=== PATIENT | male | born 1995 | race Caucasian/White ===

== ENCOUNTER 2017-06-02 01:01 | Emergency (ER) | payer BC ==
--- NOTE | 2017-06-02 01:15 | EDM.PDOC ---
ED HPI GENERAL MEDICAL PROBLEM - General Chief Complaint: Lower Extremity Injury/Pain Stated Complaint: RIGHT FOOT PAIN Time Seen by Provider: 06/02/17 01:13 Source of Information: Reports: Patient - History of Present Illness INITIAL COMMENTS - FREE TEXT/NARRATIVE: HISTORY AND PHYSICAL: History of present illness: [] Review of shunt presents with right foot pain and open lesion on toes 3 and 4 just behind nailbed subcentimeter lacerations, patient states that a drill bit from an oil rig fell on his foot he was lifting the box with the bit and it fell through the bottom of the box unable to bear weight due to pain he rates 2 of 10 at rest 6 out of 10 with weightbearing Last tetanus shot 2 half years prior per patient No fever nausea vomiting chills sweats unaffected above the ankle no other injury per patient systems: As per history of present illness and below otherwise all systems reviewed and negative. Past medical history: As per history of present illness and as reviewed below otherwise noncontributory. Surgical history: As per history of present illness and as reviewed below otherwise noncontributory. Social history: No reported history of drug or alcohol abuse. Family history: As per history of present illness and as reviewed below otherwise noncontributory. Physical exam: HEENT: Atraumatic, normocephalic, pupils reactive, negative for conjunctival pallor or scleral icterus, mucous membranes moist, throat clear, neck supple, nontender, trachea midline. Lungs: Clear to auscultation, breath sounds equal bilaterally, chest nontender. Heart: S1S2, regular, negative for clicks, rubs, or JVD. Abdomen: Soft, nondistended, nontender. Negative for masses or hepatosplenomegaly. Negative for costovertebral tenderness. Pelvis: Stable nontender. Genitourinary: Deferred. Rectal: Deferred. Extremities: Atraumatic, negative for cords or calf pain. Neurovascular unremarkable. Right foot as per history of present illness Neuro: Awake, alert, oriented. Cranial nerves II through XII unremarkable. Cerebellum unremarkable. Motor and sensory unremarkable throughout. Exam nonfocal. Diagnostics: []Right foot 3 views Therapeutics: []Tetanus status previously up-to-date Rest ice ibuprofen Postop boot Keflex 500 by mouth twice a day #20 no refill Impression: []foot pain Subcentimeter lacerations toes 3 and 4-no suture Contusion Definitive disposition and diagnosis as appropriate pending reevaluation and review of above. Right Feet Pain Score (Numeric/FACES): 7 - Related Data Allergies Allergy/AdvReac Type Severity Reaction Status Date / Time No Known Allergies Allergy Verified 06/02/17 01:17 Home Meds: Home Meds . [No Known Home Meds] 06/02/17 [History] Review of Systems - Review of Systems Review Of Systems: ROS reveals no pertinent complaints other than HPI. ED EXAM, GENERAL - Physical Exam Exam: See Below Course - Vital Signs Last Recorded V/S: Last Vital Signs Temp 36.6 C 06/02/17 01:04 Pulse 87 06/02/17 01:04 Resp 18 06/02/17 01:04 BP 128/77 06/02/17 01:04 Pulse Ox 96 06/02/17 01:04 - Orders/Labs/Meds Orders: Active Orders 24 hr Category Date Time Status Foot Comp Min 3V Rt [CR] Stat Exams 06/02/17 01:12 Taken Meds: Medications Discontinued Medications Generic Name Dose Route Start Last Admin Trade Name Freq PRN Reason Stop Dose Admin Bacitracin 1 dose 06/02/17 02:23 Bacitracin Oint 1 Gm TOP 06/02/17 02:24 ONETIME ONE Departure - Departure Time of Disposition: 02:35 Disposition: Home, Self-Care 01 Condition: Good Clinical Impression: Contusion - Discharge Information Referrals: PCP,None [Primary Care Provider] - Forms: ED Department Discharge Additional Instructions: Bacitracin Telfa dressing Postop boot for comfort and to assist in healing small laceration/abrasion Return if symptoms persist or worsen Antibiotic prophylaxis Keflex prescription provided use as directed Return if fever nausea vomiting chills sweats redness warmth or pus drainage should this develop Follow-up with primary care occupational health in 2 weeks sooner as needed The following information is given to patients seen in the emergency department who are being discharged to home. This information is to outline your options for follow-up care. We provide all patients seen in our emergency department with a follow-up referral. The need for follow-up, as well as the timing and circumstances, are variable depending upon the specifics of your emergency department visit. If you don't have a primary care physician on staff, we will provide you with a referral. We always advise you to contact your personal physician following an emergency department visit to inform them of the circumstance of the visit and for follow-up with them and/or the need for any referrals to a consulting specialist. The emergency department will also refer you to a specialist when appropriate. This referral assures that you have the opportunity for follow-up care with a specialist. All of these measure are taken in an effort to provide you with optimal care, which includes your follow-up. Under all circumstances we always encourage you to contact your private physician who remains a resource for coordinating your care. When calling for follow-up care, please make the office aware that this follow-up is from your recent emergency room visit. If for any reason you are refused follow-up, please contact the [facility] emergency department at and asked to speak to the emergency department charge nurse. - My Orders Last 24 Hours: My Active Orders 06/02/17 01:12 Foot Comp Min 3V Rt [CR] Stat - Assessment/Plan Last 24 Hours: My Active Orders 06/02/17 01:12 Foot Comp Min 3V Rt [CR] Stat
[2017-06-02] MEDS ORDERED: Bacitracin Oint 1 GM U/D Packet TOP ONE (02:23)
[2017-06-02 02:47] VITALS: BP 125/56
--- NOTE | 2017-06-03 11:17 | CR ---
EXAM DATE: 06/02/17 PATIENT'S AGE: 22 Patient: POLLO SHARP Facility: [place], [place] Site . Site : 1995 Study: XRay Extremity Right FOOT-06/02/2017 2:09:01 AM Ordering Physician: Doctor Barker Final Report: INDICATION: Pain. Oil rig drill fell on foot. Laceration to ring toe. TECHNIQUE: Foot radiograph 3 views COMPARISON: None FINDINGS: Bones: Alignment is normal. No definite fracture to the 3rd or 4th terminal maximo. Joint spaces: The visualized hindfoot, midfoot, and forefoot joints are unremarkable in appearance. Soft tissues: Unremarkable. No radiopaque foreign bodies are noted. IMPRESSION: 1. No acute osseous injuries are identified. Soft tissue swelling involving the 3rd and 4th digits. Dictated by Eric Mccormack MD @ 06/02/2017 2:34:07 AM Dictated by: Eric Mccormack MD @ 06/02/2017 02:34:18 (Electronic Signature) Report Signed by Proxy. ASHVIN
== END 2017-06-02 02:46 | disposition home or self-care (01) ==
LOC: MW.ED 01:01
DX: S91.114A Laceration without foreign body of right lesser toe(s) without damage to nail, initial encounter (principal); W20.8XXA Other cause of strike by thrown, projected or falling object, initial encounter
CPT/HCPCS: 73630-26-RT; 73630-RT; 99282; 99283

== ENCOUNTER 2017-07-28 20:23 | Observation (INO) | payer BC ==
[2017-07-28] MEDS ORDERED: LORazepam 2 MG/ML SDV IVPUSH ONE (20:24)
[2017-07-28] MEDS ORDERED: Ondansetron 4 MG/2 ML SDV IVPUSH ONE (20:25)
[2017-07-28] MEDS ORDERED: Sodium Chloride 0.9% 1,000 ML IV ONE (20:25)
--- NOTE | 2017-07-28 20:27 | EDM.PDOC ---
ED HPI GENERAL MEDICAL PROBLEM - General Stated Complaint: MENTAL Time Seen by Provider: 07/28/17 20:26 Source of Information: Reports: Patient - History of Present Illness INITIAL COMMENTS - FREE TEXT/NARRATIVE: HISTORY AND PHYSICAL: History of present illness: []22-year-old male arrives via EMS Apparently friends had found him on the floor of the dorm all at the college who is somnolent hard to arouse, on EMS arrival he complained of some chest pain. He had been smoking marijuana today otherwise denies any chronic illness or disease denies any other drug use Remains quite somnolent he was provided [place] 0.42 with the first dose he did perk Him and Answered Some Questions since He Has Been Sleeping Fairly Heavily Unable to wake Him with Sternal Rub Review of systems: As per history of present illness and below otherwise all systems reviewed and negative. Past medical history: As per history of present illness and as reviewed below otherwise noncontributory. Surgical history: As per history of present illness and as reviewed below otherwise noncontributory. Social history: No reported history of drug or alcohol abuse. Family history: As per history of present illness and as reviewed below otherwise noncontributory. Physical exam: HEENT: Atraumatic, normocephalic, pupils reactive, negative for conjunctival pallor or scleral icterus, mucous membranes moist, throat clear, neck supple, nontender, trachea midline. Lungs: Clear to auscultation, breath sounds equal bilaterally, chest nontender. Heart: S1S2, regular, negative for clicks, rubs, or JVD. Abdomen: Soft, nondistended, nontender. Negative for masses or hepatosplenomegaly. Negative for costovertebral tenderness. Pelvis: Stable nontender. Genitourinary: Deferred. Rectal: Deferred. Extremities: Atraumatic, negative for cords or calf pain. Neurovascular unremarkable. Neuro: Awake, alert, oriented. Cranial nerves II through XII unremarkable. Cerebellum unremarkable. Motor and sensory unremarkable throughout. Exam nonfocal. Diagnostics: []CBC CMP UA cardiac enzymes TSH drug and alcohol screen EKG Chest [address] Accu-Chek on arrival 129 ABG Therapeutics: []Normal saline bolus Ativan 1 mg IV [place] 0.4 mg 2 some response to this Impression: []Marijuana use Seizure-like activity on arrival Somnolence Definitive disposition and diagnosis as appropriate pending reevaluation and review of above. - Related Data Allergies Allergy/AdvReac Type Severity Reaction Status Date / Time No Known Allergies Allergy Verified 07/28/17 20:32 Home Meds: Home Meds . [No Known Home Meds] 06/02/17 [History] Past Medical History - Past Surgical History GI Surgical History: Reports: Appendectomy Social & Family History - Family History Family Medical History: Noncontributory - Tobacco Use Smoking Status *Q: Never Smoker Second Hand Smoke Exposure: No - Recreational Drug Use Recreational Drug Use: No ED ROS GENERAL - Review of Systems Review Of Systems: ROS reveals no pertinent complaints other than HPI. ED EXAM, GENERAL - Physical Exam Exam: See Below Course - Vital Signs Last Recorded V/S: Last Vital Signs Temp 98.5 F 07/28/17 20:32 Pulse 92 07/28/17 20:32 Resp 20 07/28/17 20:32 BP 139/73 07/28/17 20:32 Pulse Ox 99 07/28/17 20:32 - Orders/Labs/Meds Orders: Active Orders 24 hr Category Date Time Status EKG Documentation Completion [RC] STAT Care 07/28/17 20:26 Active Chest 1V Frontal [CR] Stat Exams 07/28/17 20:26 Taken Head wo Cont [CT] Stat Exams 07/28/17 20:27 Taken ABG [BLOOD GAS ARTERIAL] [BG] Stat Lab 07/28/17 23:16 Ordered Labs: Laboratory Tests 07/28/17 07/28/17 07/28/17 Range/Units 20:43 20:43 21:14 WBC 4.84 (4.0-11.0) K/uL RBC 4.99 (4.50-5.90) M/uL Hgb 14.3 (13.0-17.0) g/dL Hct 42.1 (38.0-50.0) % MCV 84.4 (80.0-98.0) fL MCH 28.7 (27.0-32.0) pg MCHC 34.0 (31.0-37.0) g/dL RDW Std Deviation 39.7 (28.0-62.0) fl RDW Coeff of Ary 13 (11.0-15.0) % Plt Count 168 (150-400) K/uL MPV 8.50 (7.40-12.00) fL Neut % (Auto) 58.1 (48.0-80.0) % Lymph % (Auto) 31.6 (16.0-40.0) % [place] % (Auto) 6.8 (0.0-15.0) % Eos % (Auto) 3.3 (0.0-7.0) % Baso % (Auto) 0.2 (0.0-1.5) % Neut # (Auto) 2.8 (1.4-5.7) K/uL Lymph # (Auto) 1.5 (0.6-2.4) K/uL Ferry # (Auto) 0.3 (0.0-0.8) K/uL Eos # (Auto) 0.2 (0.0-0.7) K/uL Baso # (Auto) 0.0 (0.0-0.1) K/uL Nucleated RBC % 0.0 /100WBC Nucleated RBCs # 0 K/uL Sodium 143 (136-146) mmol/L Potassium 3.6 (3.5-5.1) mmol/L Chloride 109 (98-110) mmol/L Carbon Dioxide 24 (21-31) mmol/L BUN 10 (6.0-23.0) mg/dL Creatinine 0.9 (0.6-1.5) mg/dL Est Cr Clr Drug Dosing 134.06 mL/min Estimated GFR (MDRD) > 60.0 ml/min Glucose 131 H (60-110) mg/dL POC Glucose 121 H (60-110) mg/dL Calcium 8.7 L (8.8-10.8) mg/dL Magnesium 1.6 (1.5-2.3) mEq/L Total Bilirubin 0.3 (0.1-1.5) mg/dL AST 23 (5-40) IU/L ALT 18 (8-54) IU/L Alkaline Phosphatase 82 (40-150) Creatine Kinase 113 (9-236) IU/L CK-MB (CK-2) 1.4 (0-6.6) ng/ml Troponin I < 0.10 (0.0-0.29) NG/ML Total Protein 6.8 (6.0-8.0) g/dL Albumin 4.1 (3.5-5.0) g/dL Globulin 2.7 (2.0-3.5) g/dL Albumin/Globulin Ratio 1.5 (1.3-2.8) TSH 3rd Generation 1.23 (0.47-5.0) uIU/mL Prolactin 20 (1-23) ng/mL Urine Color Urine Appearance Urine pH (5.0-8.0) Ur Specific [place] (1.001-1.035) Urine Protein (NEGATIVE) mg/dL Urine Glucose (UA) (NEGATIVE) mg/dL Urine Ketones (NEGATIVE) mg/dL Urine Occult Blood (NEGATIVE) Urine Nitrite (NEGATIVE) Urine Bilirubin (NEGATIVE) Urine Urobilinogen (<2.0) EU/dL Ur Leukocyte Esterase (NEGATIVE) Urine RBC (0-2/HPF) Urine WBC (0-5/HPF) Ur Epithelial Cells (NONE-FEW) Urine Bacteria (NEGATIVE) Urine Opiates Screen (NEGATIVE) Ur Oxycodone Screen (NEGATIVE) Urine Methadone Screen (NEGATIVE) Ur Barbiturates Screen (NEGATIVE) Ur Phencyclidine Scrn (NEGATIVE) Ur Amphetamine Screen (NEGATIVE) U Methamphetamines Scrn (NEGATIVE) U Benzodiazepines Scrn (NEGATIVE) U Cocaine Metab Screen (NEGATIVE) U Marijuana (THC) Screen (NEGATIVE) Ethyl Alcohol < 10.0 mg/dL 07/28/17 07/28/17 Range/Units 21:29 21:29 WBC (4.0-11.0) K/uL RBC (4.50-5.90) M/uL Hgb (13.0-17.0) g/dL Hct (38.0-50.0) % MCV (80.0-98.0) fL MCH (27.0-32.0) pg MCHC (31.0-37.0) g/dL RDW Std Deviation (28.0-62.0) fl RDW Coeff of Ary (11.0-15.0) % Plt Count (150-400) K/uL MPV (7.40-12.00) fL Neut % (Auto) (48.0-80.0) % Lymph % (Auto) (16.0-40.0) % [place]erry % (Auto) (0.0-15.0) % Eos % (Auto) (0.0-7.0) % Baso % (Auto) (0.0-1.5) % Neut # (Auto) (1.4-5.7) K/uL Lymph # (Auto) (0.6-2.4) K/uL F[place] # (Auto) (0.0-0.8) K/uL Eos # (Auto) (0.0-0.7) K/uL Baso # (Auto) (0.0-0.1) K/uL Nucleated RBC % /100WBC Nucleated RBCs # K/uL Sodium (136-146) mmol/L Potassium (3.5-5.1) mmol/L Chloride (98-110) mmol/L Carbon Dioxide (21-31) mmol/L BUN (6.0-23.0) mg/dL Creatinine (0.6-1.5) mg/dL Est Cr Clr Drug Dosing mL/min Estimated GFR (MDRD) ml/min Glucose (60-110) mg/dL POC Glucose (60-110) mg/dL Calcium (8.8-10.8) mg/dL Magnesium (1.5-2.3) mEq/L Total Bilirubin (0.1-1.5) mg/dL AST (5-40) IU/L ALT (8-54) IU/L Alkaline Phosphatase (40-150) Creatine Kinase (9-236) IU/L CK-MB (CK-2) (0-6.6) ng/ml Troponin I (0.0-0.29) NG/ML Total Protein (6.0-8.0) g/dL Albumin (3.5-5.0) g/dL Globulin (2.0-3.5) g/dL Albumin/Globulin Ratio (1.3-2.8) TSH 3rd Generation (0.47-5.0) uIU/mL Prolactin (1-23) ng/mL Urine Color YELLOW Urine Appearance CLEAR Urine pH 7.5 (5.0-8.0) Ur Specific [place] 1.010 (1.001-1.035) Urine Protein NEGATIVE (NEGATIVE) mg/dL Urine Glucose (UA) NEGATIVE (NEGATIVE) mg/dL Urine Ketones NEGATIVE (NEGATIVE) mg/dL Urine Occult Blood NEGATIVE (NEGATIVE) Urine Nitrite NEGATIVE (NEGATIVE) Urine Bilirubin NEGATIVE (NEGATIVE) Urine Urobilinogen 0.2 (<2.0) EU/dL Ur Leukocyte Esterase NEGATIVE (NEGATIVE) Urine RBC NONE SEEN (0-2/HPF) Urine WBC NONE SEEN (0-5/HPF) Ur Epithelial Cells NOT SEEN (NONE-FEW) Urine Bacteria RARE (NEGATIVE) Urine Opiates Screen NEGATIVE (NEGATIVE) Ur Oxycodone Screen NEGATIVE (NEGATIVE) Urine Methadone Screen NEGATIVE (NEGATIVE) Ur Barbiturates Screen NEGATIVE (NEGATIVE) Ur Phencyclidine Scrn NEGATIVE (NEGATIVE) Ur Amphetamine Screen NEGATIVE (NEGATIVE) U Methamphetamines Scrn NEGATIVE (NEGATIVE) U Benzodiazepines Scrn NEGATIVE (NEGATIVE) U Cocaine Metab Screen NEGATIVE (NEGATIVE) U Marijuana (THC) Screen POSITIVE (NEGATIVE) Ethyl Alcohol mg/dL Meds: Medications Discontinued Medications Generic Name Dose Route Start Last Admin Trade Name Freq PRN Reason Stop Dose Admin Sodium Chloride 1,000 mls @ 999 mls/hr 07/28/17 20:25 07/28/17 20:32 Normal Saline IV 07/28/17 21:25 999 mls/hr STAT ONE Administration Lorazepam 1 mg 07/28/17 20:24 07/28/17 20:31 Ativan IVPUSH 07/28/17 20:25 1 mg ONETIME ONE Administration Naloxone HCl 0.4 mg 07/28/17 20:53 07/28/17 21:05 Narcan IVPUSH 07/28/17 20:54 0.4 mg ONETIME ONE Administration Naloxone HCl 0.4 mg 07/28/17 21:07 07/28/17 21:14 Narcan IVPUSH 07/28/17 21:08 0.4 mg ONETIME ONE Administration Naloxone HCl Confirm 07/28/17 21:08 07/28/17 21:14 Narcan Administered 07/28/17 21:09 Not Given Dose 0.4 mg .ROUTE .STK-MED ONE Ondansetron HCl 8 mg 07/28/17 20:25 07/28/17 20:34 Zofran IVPUSH 07/28/17 20:26 8 mg ONETIME ONE Administration Departure - Departure Time of Disposition: 23:18 Disposition: Refer to Observation Condition: Fair Clinical Impression: Somnolence, Drug use - Discharge Information Referrals: PCP,None [Primary Care Provider] - - My Orders Last 24 Hours: My Active Orders 07/28/17 20:26 EKG Documentation Completion [RC] STAT Chest 1V Frontal [CR] Stat 07/28/17 20:27 Head wo Cont [CT] Stat 07/28/17 23:16 ABG [BLOOD GAS ARTERIAL] [BG] Stat - Assessment/Plan Last 24 Hours: My Active Orders 07/28/17 20:26 EKG Documentation Completion [RC] STAT Chest 1V Frontal [CR] Stat 07/28/17 20:27 Head wo Cont [CT] Stat 07/28/17 23:16 ABG [BLOOD GAS ARTERIAL] [BG] Stat
[2017-07-28] MEDS ORDERED: Naloxone 0.4 MG/ML Syringe IVPUSH ONE ×2 (20:53→21:07)
[2017-07-28] MEDS ORDERED: Naloxone 0.4 MG/ML Syringe ONE (21:08)
[2017-07-28 21:11] LABS: CHLORIDE,CL 109 mmol/L (98-110); SODIUM,NA 143 mmol/L (136-146)
[2017-07-29] MEDS ORDERED: Sodium Chloride 0.9% 10 ML Syringe FLUSH PRN (00:33)
[2017-07-29] MEDS ORDERED: Sodium Chloride 0.9% 2.5 ML Syringe FLUSH PRN (00:33)
[2017-07-29] MEDS ORDERED: Acetaminophen 500 MG Tab PO PRN (00:35)
[2017-07-29 08:17] VITALS: BP 125/70
--- NOTE | 2017-07-29 10:05 | PCM.HP ---
H&P History of Present Illness - General Date of Service: 07/29/17 Admit Problem/Dx: Admission Diagnosis/Problem Admission Diagnosis/Problem Syncopal episode Source of Information: Patient History Limitations: Reports: No Limitations - History of Present Illness Initial Comments - Free Text/Narative: This 22 year old male, otherwise healthy presented to the ED with complaints of passing out last evening. He reports getting off work around 0600 am, smoking marijuana on his way home from work and then eating and sleeping for 8 hours. He awoke and felt fine. Around 1800 he was playing video games and suddenly became very lightheaded and dizzy. He moved to his couch and attempted to call his parents, but couldn't see the phone. He got up to go to his roommates room to ask him for help. He remembers have some chest heaviness and felt like his heart was racing and then remembers nothing. No friends with at this time to interview regarding their witnessing of event. He was never told he had shaking movements of arms, legs or trouble breathing. He was given narcan x 2 in the ED and awoke slightly after the first dose. He reports the marijuana he has, he has smoke before, he has had this "stash" for awhile and otherwise has had no issues. He has to cardiac history and is unclear of family hx of this or other conditions, including seizures. He denies ever having anything like this before. He denies alochol use, rarely drinks energy drinks, drinks 2 cups of coffee randomly, last time was 1 week ago, no tobacco use and no other recreational drug use. In the ED labwork WNL. Ua negative, Tox screen revealed only THC. alcohol level normal. CXR negative and head CT negative as well. Tele revealed SA, no ectopy or arrhythmias. VS stable. he was admitted for observation. - Related Data Allergies/Adverse Reactions: Allergies Allergy/AdvReac Type Severity Reaction Status Date / Time No Known Allergies Allergy Verified 07/29/17 00:39 Home Medications: Home Meds . [No Known Home Meds] 06/02/17 [History] Past Medical History - Past Health History Medical/Surgical History: Denies Medical/Surgical History Cardiovascular History: Reports: None. Denies: Afib, Aneurysm, Arrhythmia, High Cholesterol, Hypertension, IA Respiratory History: Reports: None. Denies: Asthma, COPD, PE Musculoskeletal History: Reports: Fracture Neurological History: Denies: Brain Injury, Head Trauma, Migraines, Seizure, TIA Endocrine/Metabolic History: Reports: None. Denies: Diabetes, Type II Dermatologic History: Reports: Other (See Below) Other Dermatologic History: Currently has Athletes Foot to both feet - Infectious Disease History Other Infectious Disease History: unable to obtain - Past Surgical History GI Surgical History: Reports: Appendectomy Social & Family History - Family History Family Medical History: Noncontributory - Tobacco Use Smoking Status *Q: Never Smoker Second Hand Smoke Exposure: No - Caffeine Use Caffeine Use: Reports: Coffee. Denies: Energy Drinks - Alcohol Use Alcohol Use History: No - Recreational Drug Use Recreational Drug Use: Yes Drug Use in Last 12 Months: Yes Recreational Drug Type: Reports: Marijuana/Hashish. 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 Denies: Fever, Chills, Malaise, Weakness HEENT: Reports: No Symptoms. Denies: Headaches, Sinus Congestion, Sore Throat, Vertigo, Visual Changes Pulmonary: Reports: No Symptoms. Denies: Shortness of Breath Cardiovascular: Reports: No Symptoms. Denies: Chest Pain, Palpitations, Edema Gastrointestinal: Reports: No Symptoms. Denies: Abdominal Pain, Black Stool, Bloody Stool, Diarrhea, Decreased Appetite, Nausea, Vomiting Genitourinary: Reports: No Symptoms. Denies: Dysuria, Frequency, Burning Musculoskeletal: Reports: No Symptoms. Denies: Neck Pain Skin: Reports: No Symptoms Psychiatric: Reports: No Symptoms. Denies: Confusion, Suicidal Ideation, Homicidal Ideation Hematologic/Lymphatic: Reports: No Symptoms. Denies: Anemia Exam - Exam Exam: See Below - Vital Signs Vital Signs: Last Vital Signs Temp 97.3 F 07/29/17 08:00 Pulse 60 07/29/17 08:00 Resp 22 H 07/29/17 08:00 BP 125/70 07/29/17 08:00 Pulse Ox 100 07/29/17 08:00 Weight: 91.762 kg - Exam General: Alert, Oriented, Cooperative HEENT: Conjunctiva Clear, Mucosa Moist & [employer], Posterior Pharynx Clear, Pupils Reactive Neck: Supple, Trachea Midline, 2 Lungs: Clear to Auscultation, Normal Respiratory Effort Cardiovascular: Regular Rate, Regular Rhythm, Normal S1, Normal S2. No: Irregular Rhythm, Tachycardia, Systolic Murmur, Diastolic Murmur Back Exam: Normal Inspection, Full Range of Motion, NT Extremities: Normal Inspection, Normal Range of Motion, Non-Tender, No Pedal Edema, Normal Capillary Refill Neurological: Cranial Nerves Intact, Reflexes Equal Bilateral Neuro Extensive - Mental Status: Alert, Oriented x3, Normal Mood/Affect, Normal Cognition Neuro Extensive - Motor, Sensory, Reflexes: CN II-XII Intact, Normal Gait, Normal Reflexes Psychiatric: Alert, Normal Affect, Normal Mood. No: Suicidal Ideation, Homicidal Ideation - Patient Data Lab Results Last 24 hrs: Laboratory Results - last 24 hr 07/28/17 Range/Units 23:30 ABG pH 7.401 (7.35-7.45) ABG pCO2 40 (35-45) mmHG ABG pO2 91 (75-100) mmHG ABG HCO3 25 (22-26) mEq/L ABG Total CO2 22.2 ABG Base Excess 0.2 (-2.0-2.0) Result Diagrams: 07/28/17 20:43 07/28/17 20:43 *Q Meaningful Use (ADM) - VTE *Q VTE Criteria *Q: - Stroke *Q Stroke Criteria *Q: - AMI *Q AMI Criteria *Q: - Problem List (1) Syncope SNOMED Code(s): 533694569 ICD Code: R55 - SYNCOPE AND COLLAPSE Status: Acute Qualifiers: Syncope type: unspecified Qualified Code(s): R55 - Syncope and collapse (2) Drug use SNOMED Code(s): 57437425 ICD Code: F19.90 - OTHER PSYCHOACTIVE SUBSTANCE USE, UNSPECIFIED, UNCOMPLICATED Status: Chronic Problem List Initiated/Reviewed/Updated: No Orders Last 24hrs: Active Orders 24 hr Category Date Time Status Telemetry Monitoring [Cardiac Monitoring] [RC] Q8H Care 07/29/17 00:34 Active Up ad Rita [RC] ASDIRECTED Care 07/29/17 00:34 Active Regular Diet [DIET] Diet 07/29/17 Breakfast Active Acetaminophen [Tylenol Extra Strength] Med 07/29/17 00:35 Active 500 mg PO Q4H PRN Sodium Chloride 0.9% [Saline Flush] Med 07/29/17 00:33 Active 10 ml FLUSH ASDIRECTED PRN Sodium Chloride 0.9% [Saline Flush] Med 07/29/17 00:33 Active 2.5 ml FLUSH ASDIRECTED PRN Saline Lock Insert [OM.PC] Routine Oth 07/29/17 00:33 Ordered Medication Orders Acetaminophen (Tylenol Extra Strength) 500 mg PO Q4H PRN PRN Reason: Pain Sodium Chloride (Saline Flush) 10 ml FLUSH ASDIRECTED PRN PRN Reason: Keep Vein Open Sodium Chloride (Saline Flush) 2.5 ml FLUSH ASDIRECTED PRN PRN Reason: Keep Vein Open Assessment/Plan Comment:: Admission/Discharge plan: This 22 year old male admitted for possible seizure and possible syncopal episode I spoke with patient his morning regarding further workup to further evaluate if this was seizure or cardiac induced. He continued to deny further workup and wanted to be discharged home. He was explained if this is cardiac in nature, could be possible if a fatal arrhythmia were to occur. He verbalized, "I think I will be fine, I am fine." He continued to refuse further work up or follow up with Neurology. He was offered event monitor and further imaging such as MRI for seizure, which he declines. I had Dr. Cantor speak with him and he continued to decline workup and requests discharge. He did agree to be seen at follow up with a PCP, which we will arrange for him. We have educated him on precautions to take. Due to the unknown etiology of his syncopal episode he was urged not to drive for 6 months, no swimming, climbing on ladders or going up high on anything, and no operation of heavy material. He will be discharged home. He is to return to ED or clinic if concerns should arise.
--- NOTE | 2017-07-29 10:10 | PCM.SN ---
- Free Text/Narrative Note: I interviewed patient. I also spoke with CAROL Hudson regarding the case. I advised him to stay for further evaluation . He politely refused further work up. He also refused neurology consult. We discussed the possibility of seizure or cardiac etiology. I advised to avoid swimming, driving or other potentially dangerous activity until further work up. He insists on discharge.
--- NOTE | 2017-07-29 16:18 | CR ---
EXAM DATE: 07/28/17 PATIENT'S AGE: 22 Patient: POLLO SEGURA Facility: [place], [place] Site . Site : 1995 Study: XRay Chest [id number]/3/2017 9:15:39 PM Ordering Physician: Doctor Barker Final Report: INDICATION: ALOC FINDINGS: A portable AP view of the chest was obtained. The cardiac silhouette and pulmonary vasculature are within normal limits. The lungs are clear bilaterally. IMPRESSION: No evidence of acute pulmonary disease. Dictated by Ramírez Salgado MD @ 07/28/2017 9:46:48 PM Dictated by: Ramírez Salgado MD @ 07/28/2017 21:46:54 (Electronic Signature) Report Signed by Proxy. [facility] HOSPITALBeka
--- NOTE | 2017-07-29 16:41 | CT ---
EXAM DATE: 07/28/17 PATIENT'S AGE: 22 Patient: POLLO SEGURA Facility: [place], [place] Site . Site : 1995 Study: CT Head [id number]/3/2017 10:01:16 PM Ordering Physician: Doctor Barker Final Report: INDICATION: Altered level of consciousness TECHNIQUE: CT head without contrast. COMPARISON: None available FINDINGS: The ventricles and sulci demonstrate normal configuration and size. There is no mass effect or midline shift. There is no loss of castano-white differentiation. There is no evidence of an acute intracranial hemorrhage. No acute calvarial fracture is seen. The visualized paranasal sinuses and mastoid air cells are clear. The visualized orbits are within normal limits. IMPRESSION: No evidence of an acute intracranial hemorrhage, mass effect or loss of castano- white differentiation. Dictated by Francisco Aguilar MD @ 07/28/2017 10:57:05 PM Dictated by: Francisco Aguilar MD @ 07/28/2017 22:57:11 (Electronic Signature) Report Signed by Proxy. ASHVIN
== END 2017-07-29 11:20 | disposition home or self-care (01) ==
LOC: MW.ED 20:23 → MW.MS 23:18
PROVIDERS: ADMIT Family Medicine; ATTEND Family Medicine
DX: R55 Syncope and collapse (principal); F12.90 Cannabis use, unspecified, uncomplicated; Z90.49 Acquired absence of other specified parts of digestive tract
CPT/HCPCS: 36415; 36600; 70450; 71010; 80053; 80305; 81001; 82550; 82553; 82803; 82962; 83735; 84146; 84443; 84484; 85025; 93005; 96361; 96374; 96375; 99285; A9270; G0480; J2060; J2405; J7040; 99283; G0378